=== PATIENT | male | born 1955 | race Caucasian/White ===

== ENCOUNTER 2017-05-11 11:11 | Day surgery (SDC) | payer OTHER ==
[2017-05-05 10:29] VITALS: BMI 30.7
[2017-05-11] MEDS ORDERED: Sodium Chloride 0.9% 1,000 ML IV SCH (12:45)
[2017-05-11] MEDS ORDERED: Midazolam 2 MG/2 ML VIAL ONE (12:46)
[2017-05-11] MEDS ORDERED: Propofol 10 mg/ml Inj (20 ML) ONE (12:46)
[2017-05-11 14:50] VITALS: BP 127/77; PULSE 59; RESP 16; TEMP 97.6; O2SAT 100
== END 2017-05-11 15:35 | disposition home or self-care (01) ==
LOC: ENDO 11:11
PROVIDERS: ATTEND Internal Medicine Gastroenterology
DX: Z12.11 Encounter for screening for malignant neoplasm of colon (principal); K64.8 Other hemorrhoids; B80 Enterobiasis
CPT/HCPCS: 45378; J2001; J2250; J2704; J7040